=== PATIENT | female | born 1975 | race Two or more races ===

== ENCOUNTER 2016-10-11 13:58 | Emergency (ER) | payer MEDICAID ==
[~2016-10-11] VITALS: Ht 165.1 cm; Wt 99.8 kg
--- NOTE | 2016-10-11 14:56 | NUR ---
Patient discharged to home in stable conditon. Written and verbal after care instructions given. Patient verbalizes understanding of instructions.pt walks in steady gait. no sign of distress
[2016-10-11 14:57] VITALS: BP 111/71
== END 2016-10-11 14:58 | disposition home or self-care (01) ==
LOC: ER 14:03
DX: R53.1 Weakness (principal)
CPT/HCPCS: 93005; A4663